=== PATIENT | female | born 1950 | race Caucasian/White ===

== ENCOUNTER 2016-03-31 14:24 | Emergency (ER) | payer MEDICAID, MEDICARE ==
[~2016-03-31] VITALS: Ht 154.9 cm; Wt 81.6 kg
[~2016-03-31 14:24] MED LIST: NITR0.4S29 SL; NOR10T PO
[2016-03-31 15:06] VITALS: BP 175/85
[2016-03-31] MEDS ORDERED: ONDANSETRON HCL 4 MG/2 ML VIAL IM ONE (15:30)
== END 2016-03-31 15:37 | disposition home or self-care (01) ==
LOC: ER 14:27
DX: T63.301A Toxic effect of unspecified spider venom, accidental (unintentional), initial encounter (principal); M79.89 Other specified soft tissue disorders; I25.2 Old myocardial infarction; I25.10 Atherosclerotic heart disease of native coronary artery without angina pectoris; Z88.0 Allergy status to penicillin; W57.XXXA Bitten or stung by nonvenomous insect and other nonvenomous arthropods, initial encounter; Y93.9 Activity, unspecified; Y99.8 Other external cause status; Y92.59 Other trade areas as the place of occurrence of the external cause
CPT/HCPCS: 96372; 99283; J2405

== ENCOUNTER 2017-10-13 05:32 | Inpatient (IN) | payer MEDICARE, MEDICAID ==
[~2017-10-13] VITALS: Ht 154.9 cm; Wt 90.8 kg
[2017-10-13 07:14] LABS: Basophils # (auto) 0.1 uL; Basophils % (auto) 1.2 % (0.0-2.0); Eosinophils # (auto) 0.1 uL; Eosinophils % (auto) 2.9 % (0.0-7.0); Hematocrit 38.6 % (36.0-46.0); Lymphocytes # (auto) 1.2 uL; Lymphocytes % (auto) 24.9 % (10.0-50.0); Mean Corpuscular Hemoglobin 29.4 pg (28.0-32.0); Mean Corpuscular Hgb Conc. 33.6 g/dL (32.0-36.0); Mean Corpuscular Volume 87.3 fL (80.0-100.0); Monocytes # (auto) 0.4 uL; Monocytes % (auto) 7.2 % (0.0-12.0); Neutrophils # (auto) 3.1 uL; Neutrophils % (auto) 63.8 % (37.0-80.0); Platelet Count (auto) 254 10^3/uL (140-450); Red Blood Cells 4.42 10^6/uL (4.0-5.20); White Blood Cell 4.9 10^3/uL (4.4-10.8)
[2017-10-13] MEDS ORDERED: ASPirin 81 mg TAB PO ONE (07:45)
[2017-10-13 07:51] LABS: Alanine Aminotransferase 22 U/L (13-56); Alkaline Phosphatase 89 U/L (45-117); Anion Gap 4 (5-15); Aspartate Aminotransferase 13 U/L (15-37); BUN/Creatinine Ratio 13.3; Bilirubin, Total 0.9 mg/dL (0.2-1.0); Blood Urea Nitrogen 13 mg/dL (7-18); Calcium 8.8 mg/dL (8.5-10.1); Carbon Dioxide 28 mmol/L (21-32); Chloride 108 mmol/L (98-107); GFR African American 73 mL/min; GFR Non-African American 60 mL/min; Glucose 101 mg/dL (74-106); Magnesium 2.8 mg/dL (1.6-2.6); Potassium 4.2 mmol/L (3.5-5.1); Sodium 140 mmol/L (136-145); Total Protein 7.9 g/dL (6.4-8.2)
[2017-10-13] MEDS ORDERED: MORPHINE SULF INJ 2 MG/ML SYRINGE 1ML IV PRN (12:30)
[2017-10-13] MEDS ORDERED: NITROGLYCERIN 0.4 MG SL TAB SL PRN (12:30)
[2017-10-13] MEDS: ENOXAPARIN SOD 60 MG/0.6 ML SYRINGE SC SCH ×2 (12:59→22:16)
[2017-10-13 20:00] VITALS: BP 164/91
[2017-10-13 21:34] VITALS: BP 164/91
[2017-10-14] MEDS ORDERED: DICL1GEL26 TD (00:19)
[2017-10-14 04:59] VITALS: BP 143/68
[2017-10-14 09:12] VITALS: BP 156/78
[2017-10-14] MEDS: ASPirin 81 mg TAB PO SCH (11:25)
[2017-10-14] MEDS: HYDROcodone-ACET 5/325MG TAB PO PRN ×2 (11:25→21:13)
[2017-10-14] MEDS: ENOXAPARIN SOD 60 MG/0.6 ML SYRINGE SC SCH ×2 (11:25→21:13)
[2017-10-14 13:28] VITALS: BP 152/83
[2017-10-14 17:56] VITALS: BP 117/65
[2017-10-14 20:00] VITALS: BP 153/73
[2017-10-14 21:48] VITALS: BP 153/73
[2017-10-14 23:28] LABS: Urine Bacteria MOD /hpf (None Seen); Urine Blood 1+ /uL (Negative); Urine Hyaline Cast FEW /lpf (0 - 2); Urine Specific Gravity 1.012 (1.001-1.035); Urine WBC 84 /hpf (0 - 5); Urine WBC Clumps PRESENT /hpf (None Seen)
[2017-10-15 04:38] VITALS: BP 121/67
[2017-10-15 08:59] VITALS: BP 138/75
[2017-10-15] MEDS ORDERED: LEVOFLOXACIN 500MG 100 ML IV SCH (10:00)
[2017-10-15] MEDS: ENOXAPARIN SOD 60 MG/0.6 ML SYRINGE SC SCH (10:21)
[2017-10-15] MEDS: ASPirin 81 mg TAB PO SCH (10:21)
[2017-10-15] MEDS: HYDROcodone-ACET 5/325MG TAB PO PRN (10:53)
[2017-10-15 12:46] VITALS: BP 130/70
[2017-10-15 15:48] VITALS: BP 130/70
== END 2017-10-15 16:30 | disposition home or self-care (01) | DRG 206 ==
LOC: ER 05:33 → TELE 05:34 → TELE-CENTR 18:55
PROVIDERS: ADMIT Internal Medicine Cardiovascular Disease; ATTEND Internal Medicine Cardiovascular Disease
DX: M94.0 Chondrocostal junction syndrome [Tietze] (principal); I11.9 Hypertensive heart disease without heart failure; I25.10 Atherosclerotic heart disease of native coronary artery without angina pectoris; I25.2 Old myocardial infarction; Z88.3 Allergy status to other anti-infective agents; Z88.0 Allergy status to penicillin
CPT/HCPCS: 36415; 71045; 80053; 81001; 83735; 83880; 84484; 85025; 93005; J1956